=== PATIENT | male | born 1990 | race African-American/Black ===

== ENCOUNTER 2025-02-10 23:17 | Emergency (ER) | payer MEDICAID, OTHER ==
[~2025-02-10] VITALS: Ht 182.9 cm; Wt 90.7 kg
[2025-02-10 23:20] VITALS: BP 142/74; TEMP 98.9; O2SAT 100
== END 2025-02-10 23:32 | disposition left against medical advice (07) ==
LOC: ER 23:19
DX: G89.29 Other chronic pain (principal); M54.6 Pain in thoracic spine; Z53.21 Procedure and treatment not carried out due to patient leaving prior to being seen by health care provider

== ENCOUNTER 2025-03-24 00:03 | Emergency (ER) | payer MEDICAID, OTHER ==
[~2025-03-24] VITALS: Ht 180.3 cm; Wt 81.6 kg
[2025-03-24 00:08] VITALS: BP 138/83; TEMP 98.4; O2SAT 99
[2025-03-24] MEDS ORDERED: IBUPROFEN 400 MG TABLET PO ONE (00:30)
== END 2025-03-24 00:25 | disposition home or self-care (01) ==
LOC: ER 00:04
DX: G89.29 Other chronic pain (principal); M79.671 Pain in right foot; M79.672 Pain in left foot; Z59.00 Homelessness unspecified

== ENCOUNTER 2025-03-24 02:23 | Emergency (ER) | payer OTHER ==
[~2025-03-24] VITALS: Ht 180.3 cm; Wt 81.6 kg
[2025-03-24 02:26] VITALS: BP 128/64; TEMP 98.2; O2SAT 98
== END 2025-03-24 05:11 | disposition left against medical advice (07) ==
LOC: ER 02:24
DX: M79.672 Pain in left foot (principal); M79.671 Pain in right foot; Z53.21 Procedure and treatment not carried out due to patient leaving prior to being seen by health care provider

== ENCOUNTER 2025-03-24 06:29 | Emergency (ER) | payer OTHER | END 2025-03-24 06:45 | disposition left against medical advice (07) | LOC: ER 06:30 | DX: R06.02 Shortness of breath (principal); Z53.21 Procedure and treatment not carried out due to patient leaving prior to being seen by health care provider ==